=== PATIENT | male | born 1935 | race American Indian/Alaskan Native ===

== ENCOUNTER 2021-04-15 11:43 | Emergency (ER) | payer MEDICARE ==
[2021-04-15 12:06] VITALS: BP 179/97
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
== END 2021-04-15 15:30 | disposition home or self-care (01) ==
LOC: ED 11:43
DX: M54.2 Cervicalgia (principal); V49.49XA Driver injured in collision with other motor vehicles in traffic accident, initial encounter; Y92.410 Unspecified street and highway as the place of occurrence of the external cause; Y93.89 Activity, other specified; Y99.8 Other external cause status
CPT/HCPCS: 72040